=== PATIENT | male | born 1965 | race Caucasian/White ===

== ENCOUNTER 2017-07-18 12:17 | Day surgery (SDC) | payer OTHER ==
[2017-07-18] MEDS ORDERED: FENTAnyl 50 MCG/ML VIAL ×2 (13:44→13:59)
[2017-07-18] MEDS ORDERED: LIDOCAINE 2% (SDV) 5 ML INJ (13:59)
[2017-07-18] MEDS ORDERED: PROPOFOL 20 ML (13:59)
[2017-07-18] MEDS ORDERED: MIDAZOLAM 1 MG/ML 2 ML INJ (14:00)
== END 2017-07-18 16:52 | disposition home or self-care (01) ==
LOC: GIL 12:17
DX: Z12.11 Encounter for screening for malignant neoplasm of colon (principal); K64.4 Residual hemorrhoidal skin tags; I10 Essential (primary) hypertension; E66.01 Morbid (severe) obesity due to excess calories; Z68.41 Body mass index [BMI] 40.0-44.9, adult
CPT/HCPCS: 45378